=== PATIENT | female | born 1955 | race Caucasian/White ===

== ENCOUNTER 2017-08-01 11:26 | Outpatient (CLI) | payer OTHER | END 2017-08-01 15:41 | disposition home or self-care (01) | LOC: RAD 11:26 | DX: M65.2 Calcific tendinitis (principal) ==

== ENCOUNTER 2017-08-15 11:05 | Outpatient (CLI) | payer OTHER | END 2017-08-15 11:10 | disposition home or self-care (01) | LOC: RAD 11:05 | DX: Q76.5 Cervical rib (principal) ==

== ENCOUNTER 2018-04-07 06:57 | Outpatient (CLI) | payer OTHER | END 2018-04-07 07:17 | disposition home or self-care (01) | LOC: LAB 06:57 | DX: E78.2 Mixed hyperlipidemia (principal); E11.65 Type 2 diabetes mellitus with hyperglycemia; N39.0 Urinary tract infection, site not specified; E03.8 Other specified hypothyroidism; D64.89 Other specified anemias; D68.8 Other specified coagulation defects ==

== ENCOUNTER 2018-04-08 11:13 | Outpatient (CLI) | payer OTHER | END 2018-04-08 11:14 | disposition home or self-care (01) | LOC: LAB 11:13 | DX: E78.2 Mixed hyperlipidemia (principal); E11.65 Type 2 diabetes mellitus with hyperglycemia; N39.0 Urinary tract infection, site not specified; E03.8 Other specified hypothyroidism; D64.89 Other specified anemias; D68.8 Other specified coagulation defects; Z12.11 Encounter for screening for malignant neoplasm of colon ==

== ENCOUNTER 2018-04-11 11:02 | Outpatient (CLI) | payer OTHER | END 2018-04-11 11:13 | disposition home or self-care (01) | LOC: MAMO-SONO 11:02 | DX: Z12.31 Encounter for screening mammogram for malignant neoplasm of breast (principal); Z12.39 Encounter for other screening for malignant neoplasm of breast ==

== ENCOUNTER 2018-05-06 09:02 | Outpatient (CLI) | payer OTHER | END 2018-05-06 09:12 | disposition home or self-care (01) | LOC: NUCLEAR 09:02 | DX: I82.409 Acute embolism and thrombosis of unspecified deep veins of unspecified lower extremity (principal); M81.0 Age-related osteoporosis without current pathological fracture ==

== ENCOUNTER 2018-12-09 06:23 | Outpatient (CLI) | payer OTHER | END 2018-12-09 06:37 | disposition home or self-care (01) | LOC: LAB 06:23 | DX: E03.8 Other specified hypothyroidism (principal); E78.2 Mixed hyperlipidemia; E11.65 Type 2 diabetes mellitus with hyperglycemia; N39.0 Urinary tract infection, site not specified; J45.998 Other asthma ==

== ENCOUNTER 2018-12-25 07:42 | Outpatient (CLI) | payer OTHER | END 2018-12-25 15:39 | disposition home or self-care (01) | LOC: SONOGRAMA 07:42 | DX: N39.0 Urinary tract infection, site not specified (principal); N12 Tubulo-interstitial nephritis, not specified as acute or chronic ==

== ENCOUNTER 2019-09-02 07:14 | Outpatient (CLI) | payer OTHER | END 2019-09-02 07:21 | disposition home or self-care (01) | LOC: LAB 07:14 | DX: E11.65 Type 2 diabetes mellitus with hyperglycemia (principal); E11.21 Type 2 diabetes mellitus with diabetic nephropathy; N39.0 Urinary tract infection, site not specified; E78.2 Mixed hyperlipidemia; Z12.11 Encounter for screening for malignant neoplasm of colon; D64.89 Other specified anemias ==

== ENCOUNTER 2019-09-03 09:48 | Outpatient (CLI) | payer OTHER | END 2019-09-03 09:54 | disposition home or self-care (01) | LOC: LAB 09:48 | DX: E11.65 Type 2 diabetes mellitus with hyperglycemia (principal); E11.21 Type 2 diabetes mellitus with diabetic nephropathy; N39.0 Urinary tract infection, site not specified; E78.2 Mixed hyperlipidemia; Z12.11 Encounter for screening for malignant neoplasm of colon; D64.89 Other specified anemias ==

== ENCOUNTER 2019-09-07 07:09 | Outpatient (CLI) | payer OTHER | END 2019-09-07 08:00 | disposition home or self-care (01) | LOC: TOM 07:09 | DX: K57.20 Diverticulitis of large intestine with perforation and abscess without bleeding (principal); R93.41 Abnormal radiologic findings on diagnostic imaging of renal pelvis, ureter, or bladder ==

== ENCOUNTER 2020-07-23 14:51 | Emergency (ER) | payer OTHER ==
[~2020-07-23] VITALS: Ht 162.6 cm; Wt 74.8 kg
== END 2020-07-23 17:33 | disposition home or self-care (01) ==
LOC: ER 14:51
DX: S40.011A Contusion of right shoulder, initial encounter (principal); S50.11XA Contusion of right forearm, initial encounter; W01.198A Fall on same level from slipping, tripping and stumbling with subsequent striking against other object, initial encounter; Y93.89 Activity, other specified; Y92.69 Other specified industrial and construction area as the place of occurrence of the external cause; Y99.8 Other external cause status

== ENCOUNTER 2020-09-13 06:47 | Outpatient (CLI) | payer OTHER | END 2020-09-13 07:01 | disposition home or self-care (01) | LOC: LAB 06:47 | PROVIDERS: ATTEND Orthopaedic Surgery | DX: D50.8 Other iron deficiency anemias (principal); Z01.811 Encounter for preprocedural respiratory examination; K76.89 Other specified diseases of liver; I10 Essential (primary) hypertension; E11.9 Type 2 diabetes mellitus without complications; Z79.01 Long term (current) use of anticoagulants; M75.121 Complete rotator cuff tear or rupture of right shoulder, not specified as traumatic ==

== ENCOUNTER → 2021-04-20 06:46 | Outpatient (CLI) | payer OTHER | END | disposition home or self-care (01) | LOC: LAB 06:46 | PROVIDERS: ATTEND Specialist | DX: E03.8 Other specified hypothyroidism (principal); D64.89 Other specified anemias; Z12.11 Encounter for screening for malignant neoplasm of colon; E78.2 Mixed hyperlipidemia; N39.0 Urinary tract infection, site not specified; E11.65 Type 2 diabetes mellitus with hyperglycemia; E11.21 Type 2 diabetes mellitus with diabetic nephropathy; J45.998 Other asthma ==

== ENCOUNTER 2021-04-20 07:52 | Outpatient (CLI) | payer OTHER | END 2021-04-20 08:10 | disposition home or self-care (01) | LOC: MAMO-SONO 07:52 | PROVIDERS: ATTEND Specialist | DX: N60.29 Fibroadenosis of unspecified breast (principal); Z12.31 Encounter for screening mammogram for malignant neoplasm of breast ==

== ENCOUNTER 2021-04-20 16:00 | Outpatient (CLI) | payer OTHER | END 2021-04-20 16:02 | disposition home or self-care (01) | LOC: PPH VACUNA 16:00 | PROVIDERS: ATTEND Emergency Medicine Pediatric Emergency Medicine | DX: Z23 Encounter for immunization (principal) ==

== ENCOUNTER → 2021-04-21 11:15 | Outpatient (CLI) | payer OTHER | END | disposition home or self-care (01) | LOC: LAB 11:15 | PROVIDERS: ATTEND Specialist | DX: E03.8 Other specified hypothyroidism (principal); D64.89 Other specified anemias; Z12.11 Encounter for screening for malignant neoplasm of colon; E78.2 Mixed hyperlipidemia; N39.0 Urinary tract infection, site not specified; E11.65 Type 2 diabetes mellitus with hyperglycemia; E11.21 Type 2 diabetes mellitus with diabetic nephropathy ==

== ENCOUNTER 2021-05-11 10:40 | Outpatient (CLI) | payer OTHER | END 2021-05-11 10:59 | disposition home or self-care (01) | LOC: MAMO-SONO 10:40 | PROVIDERS: ATTEND Specialist | DX: N63.10 Unspecified lump in the right breast, unspecified quadrant (principal) ==